=== PATIENT | female | born 1965 | race Two or more races ===

== ENCOUNTER 2019-12-07 19:54 | Emergency (ER) | payer SELFPAY ==
[~2019-12-07] VITALS: Ht 162.6 cm; Wt 81.6 kg
--- NOTE | 2019-12-07 20:01 | NUR ---
ED Nurse Note: pt placed in waiting room, awaiting for available room, pt in stable condition
[2019-12-07 20:09] VITALS: BP 148/89
--- NOTE | 2019-12-07 20:12 | NUR ---
ED Nurse Note: pt placed in ch 1
--- NOTE | 2019-12-07 20:15 | NUR ---
ED Nurse Note: pt ambulated into ed from home CO lower left toothache x 1-2 days. Pt states that pain began last night with no known cause. Inflammation noted. Pt VSS no ss of distress noted. Pt states pain 11/25. Pt states hx of root canal. Awaiting ERMD at bedside. Awaiting further orders.
--- NOTE | 2019-12-07 21:17 | NUR ---
ED Nurse Note: ERMD at bedside
[2019-12-07] MEDS ORDERED: CLINDAMYCIN HC300 MG ORAL (21:29)
[2019-12-07] MEDS ORDERED: NORCO 5-325 TA1 EAC1 ORAL (21:29)
--- NOTE | 2019-12-07 21:29 | Emergency Room Report ---
History of Present Illness General Chief Complaint: Toothache Source: Patient Present Illness HPI Patient states she has a known cavity in her left molar. She states that she has been to the dentist and was told she needs a root canal. She has yet to get this done. She states she has been having pain in this left molar for the past few days. She will go and see the dentist but states that she is concerned because the pain is increased that she may have an infection. She was treated previously with antibiotics and that helped. She denies fever or chills. She denies cheek swelling or throat swelling. She denies difficulty swallowing. She denies headache or neck pain. She has no other complaints. Allergies: Coded Allergies: ASPIRIN (Verified Allergy, Unknown, 12/07/19) Uncoded Allergies: PENICILLIN (Allergy, Unknown, 12/07/19) COVID-19 Screening Contact w/high risk pt: No Experienced COVID-19 symptoms?: No COVID-19 Testing performed INTEGRATION ARCHITECT: No Patient History Past Medical History: none Social History: Denies: smoking, alcohol use, drug use Now: No : 5 Para: 5 Reviewed Nursing Documentation: PMH: Agreed; PSxH: Agreed Nursing Documentation-PMH History Of Psychiatric Problem: Yes - depression Review of Systems All Other Systems: negative except mentioned in HPI Physical Exam Vital Signs Date Time Temp Pulse Resp B/P (MAP) Pulse Ox O2 Delivery O2 Flow Rate FiO2 12/07/19 20:01 98.2 80 20 148/89 (108) 95 Room Air Sp02 EP Interpretation: reviewed, normal General Appearance: no apparent distress, alert, GCS 15, non-toxic Head: normocephalic, atraumatic Eyes: bilateral eye normal inspection, bilateral eye PERRL ENT: hearing grossly normal, normal pharynx, no angioedema, normal voice, other - Dental caries L. molar and pre molar. No gingival or cheek swelling. Neck: full range of motion, supple/symm/no masses Respiratory: no respiratory distress, no retraction, no accessory muscle use, speaking full sentences Rectal: deferred Musculoskeletal: back normal, normal range of motion, gait/station normal, non- tender Neurologic: alert, motor strength/tone normal, oriented x3, sensory intact, responsive, speech normal Psychiatric: judgement/insight normal, memory normal, mood/affect normal, no suicidal/homicidal ideation Medical Decision Making Diagnostic Impression: Primary Impression: Toothache Additional Impression: Dental caries ER Course This patient has obvious dental caries. She is already seen a dentist and needs a root canal. There is no evidence of gingival infection facial abscess. Overall, the patient is well-appearing without evidence of complication. I will place the patient on a course of oral antibiotics and pain medications. Patient was instructed that she needed to see a dentist for proper treatment and that antibiotics is not the treatment of choice for this condition. She was educated on the signs of complications related to odontogenic abscesses. She indicated understanding. She is given close return precautions and follow-up instructions. Last Vital Signs Date Time Temp Pulse Resp B/P (MAP) Pulse Ox O2 Delivery O2 Flow Rate FiO2 12/07/19 20:01 98.2 80 20 148/89 (108) 95 Room Air Status: improved Disposition: HOME, SELF-CARE Condition: Improved Referrals: NOT CHOSEN IPA/,REFERRING (PCP) Lynne Casey DO Dec 07, 2019 21:29
[2019-12-07 21:35] VITALS: BP 142/79
--- NOTE | 2019-12-07 21:35 | NUR ---
ER DISCHARGE NOTE: Patient is cleared to be discharged home per ERMD, pt is aox4, 99% on room air, with stable vital signs. pt was given dc and prescription instructions, pt was able to verbalize understanding, pt id band removed without complications. pt is able to ambulate with steady gait. pt took all belongings.
== END 2019-12-07 21:35 | disposition home or self-care (01) ==
LOC: EMR 21:06
DX: K02.9 Dental caries, unspecified (principal); K08.89 Other specified disorders of teeth and supporting structures; F32.9 Major depressive disorder, single episode, unspecified; Z88.6 Allergy status to analgesic agent; Z88.0 Allergy status to penicillin
CPT/HCPCS: 99281